=== PATIENT | female | born 1990 | race Caucasian/White ===

== ENCOUNTER → 2017-02-03 | Outpatient (CLI) | payer MEDICAID ==
[~2017-02-03] MED LIST: LABETALOL200 MG PO; MOTRIN800 MG PO; PRENATAL PLUS1 TA1 PO
[2017-02-07 10:39] LABS: Neisseria gonorrhoeae, NAA Negative (Negative)
== END ==
LOC: LAB 16:40
PROVIDERS: Nurse Practitioner Obstetrics & Gynecology
DX: Z34.80 Encounter for supervision of other normal pregnancy, unspecified trimester (principal)

== ENCOUNTER → 2017-07-11 | Outpatient (CLI) | payer MEDICAID | LOC: LAB 17:58 | DX: Z34.80 Encounter for supervision of other normal pregnancy, unspecified trimester (principal) ==

== ENCOUNTER 2017-07-15 04:28 | Outpatient (CLI) | payer MEDICAID ==
[~2017-07-15] VITALS: Ht 175.3 cm; Wt 99.8 kg
[2017-07-15 04:45] VITALS: BP 137/85
[2017-07-15 05:01] LABS: URINE BILIRUBIN - DIPSTICK NEGATIVE (NEG); URINE BLOOD NEGATIVE (NEG)
== END 2017-07-15 08:30 | disposition home or self-care (01) ==
LOC: OBOUT 04:28 → OB 04:28 → OBOUT 08:30
PROVIDERS: Obstetrics & Gynecology
DX: O26.93 Pregnancy related conditions, unspecified, third trimester (principal); Z3A.33 33 weeks gestation of pregnancy; R10.30 Lower abdominal pain, unspecified; M54.5 Low back pain

== ENCOUNTER 2017-07-17 10:56 | Outpatient (CLI) | payer MEDICAID ==
[~2017-07-17] VITALS: Ht 175.3 cm; Wt 96.2 kg
[2017-07-17 11:16] VITALS: BP 130/80
[2017-07-17 12:13] LABS: URINE BILIRUBIN - DIPSTICK NEGATIVE (NEG); URINE BLOOD NEGATIVE (NEG)
== END 2017-07-17 12:35 | disposition home or self-care (01) ==
LOC: OBOUT 10:56 → OB 10:56 → OBOUT 12:35
PROVIDERS: Nurse Practitioner Obstetrics & Gynecology
DX: O26.93 Pregnancy related conditions, unspecified, third trimester (principal); Z3A.38 38 weeks gestation of pregnancy; R10.2 Pelvic and perineal pain; M54.5 Low back pain